=== PATIENT | female | born 1970 | race Two or more races ===

== ENCOUNTER 2018-12-01 15:59 | Emergency (ER) | payer OTHER ==
--- NOTE | 2018-12-01 16:56 | EDPHY ---
General - History Smoking Status: Never smoked Time Seen by Provider: 12/01/18 16:31 Narrative: CLINICAL IMPRESSION: Right 2nd finger avulsion laceration with visible distal phalanx ASSESSMENT/PLAN: 48-year-old female presents to the emergency department after slamming her right 2nd finger in a sliding glass door, avulsing the distal dorsal aspect of the finger and with visible distal phalanx. Tetanus was updated at Urgent Care. Digital block placed here after reassuring distal 2 point discrimination and neurovascular exam. Full range of motion. X-rays obtained. I discussed with Dr. Caputo who is currently in the operating room but is happy to come to the emergency department to evaluate the patient when he is done. Case signed out to Dr. Kimble pending orthopedic evaluation. DIFFERENTIAL DX: Differential includes but not limited to acute fracture, strain/sprain, joint dislocation, soft tissue contusion ED PROCEDURES: ED COURSE: Repeat x-ray order, digital block placed, wound irrigation ordered 5:20 p.m.: Case discussed with Dr. Caputo who is currently in the operating room but will come to the emergency department to assess the patient when he is done. Patient was informed. Case signed out to Dr. Kimble at 5:30 p.m. pending ortho evaluation. CHIEF COMPLAINT: Right 2nd finger avulsion laceration HPI: 48-year-old female sent to the emergency department from urgent care. Patient was at work when she slammed her right 2nd finger in a sliding glass door. According to Urgent Care notes, there was concern for exposed bone of the distal phalanx. Patient received a tetanus shot at Urgent Care. She is right- hand dominant. She did not receive antibiotics ordered digital block. She has no other injuries. PAST MEDICAL HISTORY: None reported Pertinent Past Surgical History: None reported Social History: Otherwise healthy REVIEW OF SYSTEMS: All other systems negative Constitutional: No fever, no chills Musculoskeletal: No deformity, + joint pain Skin: No rashes, color change or open wounds. Neurological: No sensory loss or weakness. PHYSICAL EXAM: General Appearance: Alert, oriented, appropriate for age, cooperative, NAD, well hydrated, non-toxic appearing, VSS, no hypoxia. Neurological: [ Alert and oriented x 3, normal sensation Skin: Warm, dry, no rashes, no nodules on palpation. Musculoskeletal: Avulsion laceration to the dorsal tip of the right 2nd finger. Unable to assess whether there is exposed distal phalanx. Distal 2 point discrimination intact. Full range of motion. MEDICAL DECISION MAKING: Patient was seen independently. Secondary supervising physician at time of evaluation was Dr. Kimble. Diagnosis: Right distal 2nd finger avulsion laceration with visible distal phalanx . New, requires workup Summary: See assessment and plan for summary of ED visit Discussed patient with another provider: Dr Caputo, Dr. Kimble Patient Progress: Stable at time of sign-out. (Gene Dimas) - Diagnostics Imaging Results: Imaging Impressions Hand X-Ray 12/01/18 16:43 Impression: Amputation of the distal index finger including the soft tuft and tiny bony chip off the bony tuft distal phalanx. Discussion: Pt seen by Dr. Caputo in ED. Keflex 500mg and [place] 1 tab orally given. f/u in office in 2 days. Warning signs discussed. (Sanjana Kimble) - Objective Vital Signs: Initial Vital Signs Temperature (C) 36.6 C 12/01/18 16:05 Heart Rate 69 12/01/18 16:05 Respiratory Rate 16 12/01/18 16:05 Blood Pressure 156/74 H 12/01/18 16:05 O2 Sat (%) 97 12/01/18 16:05 O2 Delivery Mode Room Air Allergies/Adverse Reactions: No Known Allergies Allergy (Verified 03/05/19 16:05) Home Medications: Medication Instructions Recorded Cephalexin [Keflex (*)] 500 mg PO TID #14 cap 12/01/18 Hydrocodone/APAP 5/325 [[place] 1 - 2 tab PO Q4H PRN #10 tab 12/01/18 5/325] Medications Given: Discontinued Medications Hydrocodone Bitart/Acetaminophen ([place] 5/325) 1 tab PO EDNOW ONE Stop: 12/01/18 20:00 Last Admin: 12/01/18 20:02 Dose: 1 tab Cephalexin HCl (Keflex) 500 mg PO EDNOW ONE PRN Reason: Protocol Stop: 12/01/18 17:48 Last Admin: 12/01/18 20:01 Dose: 500 mg Departure - Departure Disposition: Home, Routine, Self-Care Clinical Impression: Traumatic amputation of finger tip Qualifiers: Encounter type: initial encounter Qualified Code(s): S68.119A - Complete traumatic metacarpophalangeal amputation of unspecified finger, initial encounter Condition: Good Instructions: Finger Amputation (ED) Referrals: Rigoberto Caputo MD [Medical Doctor] - As per Instructions (Call to make an appointment.) Prescriptions: Cephalexin [Keflex (*)] 500 mg PO TID #14 cap Hydrocodone/APAP 5/325 [[place] 5/325] 1 - 2 tab PO Q4H PRN #10 tab PRN Reason: Pain, Moderate
[2018-12-01] MEDS ORDERED: CEPHALEXIN 500 MG CAP PO ONE ×2 (17:47→20:00)
[2018-12-01] MEDS ORDERED: HYDROCODONE/APAP 5/325 TAB PO ONE (19:59)
[2018-12-01] MEDS ORDERED: HYDROCOD/APAP 5/325 PREPACK#6 BTL TAKEHOME ONE (20:07)
[2018-12-01 20:41] VITALS: BP 152/91
--- NOTE | 2018-12-02 07:07 | GCON ---
[f rep st] CONSULTATION DATE OF CONSULTATION: 12/01/2018 This is a consultation for Dr. Sanjana Kimble. REASON FOR CONSULTATION: Left index finger fingertip partial amputation. HISTORY OF PRESENT ILLNESS: The patient is a 48-year-old female who presented to the ER after she sl ammed her left index finger in a sliding glass door. This is a work injury. 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 There was pain and bleeding after she slammed her finger in the do or. She presented to the emergency department. In the emergency department, digital block was perfo rmed. The finger was visualized, and there was concern that there was exposed bone and loss of part of the nail matrix. I was called to evaluate and assist in the treatment. PAST MEDICAL HISTORY: None. PAST SURGICAL HISTORY: None. SOCIAL HISTORY: She is healthy. FAMILY HISTORY: Noncontributory. REVIEW OF SYSTEMS: A 10-point review of systems is negative, except as noted above. IMAGING: X-ray of the left index finger reveals a partial amputation of the tuft at the distal phala nx. PHYSICAL EXAM: GENERAL: She is alert and oriented x3. No apparent distress. Her history and exami nation are assisted with translation with her nephew. MUSCULOSKELETAL: Left index finger: There is a partial amputation of the tip of the index finger. This is a dorsal oblique type amputation. The volar pulp is intact. She lost about half of her sterile matrix transversely. There is about 5 mm exposed distal phalanx. The entire nail plate is avulsed. The germinal matrix appears intact. ASSESSMENT/PLAN: Left index finger tip partial amputation with exposed distal phalanx and loss of st erile matrix and need of coverage. I discussed with the patient and her nephew the treatment recomme ndations. As she has exposed bone and loss of the sterile matrix, I felt that shortening the bone to the level of the germinal matrix was recommended along with irrigation to prevent infection. I felt that I could preserve length of her finger to about half of her nail bed with adequate coverage of t he bone. I wished to perform this in the emergent manner here in the emergency department. We discu ssed the risks and benefits, and verbal consent was obtained. The procedure was performed in the [facility] department, and antibiotics were given by the emergency department staff. She is to follow up with me in 2 days for wound evaluation and dressing change. /[id number]/MODL
--- NOTE | 2018-12-02 07:12 | GOP ---
[f rep st] OPERATIVE REPORT DATE OF OPERATION: 12/01/2018 SURGEON: Rigoberto Caputo MD ANESTHESIA: Local digital block with lidocaine and Marcaine performed by me. PREOPERATIVE DIAGNOSIS: Left index finger tip partial amputation with exposed distal phalanx and loss of sterile matrix. POSTOPERATIVE DIAGNOSIS: Left index finger tip partial amputation with exposed distal phalanx and loss of sterile matrix. PROCEDURE PERFORMED: Left index finger revision amputation with shortening of distal phalanx for coverage of exposed distal phalanx and nailbed. FINDINGS: ESTIMATED BLOOD LOSS: 2 cc. INDICATIONS: Ene is a 48-year-old female who sustained this injury while working. She slid her finger into a sliding glass door, sustaining the above- mentioned injury, I saw the patient in the ER and evaluated her. Urgent irrigation and debridement along with shortening and coverage of the bone is indicated. We discussed risks and benefits with her and her nephew, who was helping assist with translation. Risks include pain, bleeding, hypersensitivity of the fingertip, cold intolerance, stiffness, weakness, wound healing complications, infection, dystrophic nail, hook nail. We discussed these risks and she consented verbally for the procedure. DESCRIPTION OF PROCEDURE: Verbal consent was obtained. I performed a digital block with 50:50 lidocaine and Marcaine. After digital block was performed, I irrigated copiously with sterile saline and then I prepped the finger with iodine prep. She was then prepped and draped in the usual sterile fashion. I used a finger from a glove as a tourniquet and then used a rongeur to shorten the bone back. On examination, she had lost about half of her sterile matrix transversely with exposed distal phalanx. The volar pulp appeared all intact including the paronychial skin. I then shortened the bone to the level of the remaining sterile matrix with a rongeur. I then folded over the pulp and she had very good coverage. I then used a 5-0 chromic to close the pulp over the bone and approximated to the sterile matrix, and I was able to achieve good coverage without any tension. I then irrigated again copiously with sterile saline. I removed the tourniquet. Sterile dressing was applied. She tolerated this procedure well. POSTOPERATIVE CONDITION: Stable. POSTOPERATIVE PLAN: She will follow up with me in 2 days. /[id number]/MODL MTDD
== END 2018-12-01 20:41 | disposition home or self-care (01) ==
PROC: 0X6N0Z3 Detachment at Right Index Finger, Low, Open Approach (ICD-10-PCS; principal; 2018-12-01)
DX: S68.110A Complete traumatic metacarpophalangeal amputation of right index finger, initial encounter (principal); W23.0XXA Caught, crushed, jammed, or pinched between moving objects, initial encounter; Y93.E5 Activity, floor mopping and cleaning; Y99.0 Civilian activity done for income or pay